=== PATIENT | female | born 1955 | race Caucasian/White ===

== ENCOUNTER 2016-07-18 10:10 | Emergency (ER) | payer OTHER ==
[~2016-07-18] VITALS: Wt 83.0 kg
[~2016-07-18 10:10] MED LIST: ATOR10TA65 PO; BENA20TA48 PO; BENA40TA54 PO; CIPR7.5D4 RIGHT EAR; GLIM4TAB PO; SITA1TAB3 PO
[2016-07-18] MEDS ORDERED: KETOROLAC 30 MG INJ IM STA (11:27)
[2016-07-18] MEDS ORDERED: CYCL-319 PO (12:12)
[2016-07-18] MEDS ORDERED: TRAM50TA2 PO (12:12)
[2016-07-18] MEDS ORDERED: IBUP-1542 PO (12:12)
--- NOTE | 2016-07-18 12:15 | ERD ---
ER Documentation Chief Complaint Date/Time DATE: 07/18/16 TIME: 12:13 Chief Complaint L ARM PAIN X 3 DAYS HPI This 60-year-old female presents with left arm pain for last 3 days. It radiates from her neck. She has some mild pain on her right arm that resolved and now her left arm hurts. The pain started after sleeping. She denies any shortness of breath, fevers, vomiting, bowel or bladder incontinence, weakness. ROS All systems reviewed and are negative except as per history of present illness. Medications Home Meds Active Scripts Cyclobenzaprine Hcl* (Cyclobenzaprine Hcl*) 10 Mg Tablet, 10 MG PO TID, #15 TAB Prov:AMPARO LYNN MD 07/18/16 Tramadol HCl (Tramadol HCl) 50 Mg Tablet, 50 MG PO Q4 Y for PAIN, #15 TAB Prov:AMPARO LYNN MD 07/18/16 Ibuprofen* (Motrin*) 600 Mg Tab, 600 MG PO Q6, #15 TAB Prov:AMPARO LYNN MD 07/18/16 Ciprofloxacin Hcl/Dexameth (Ciprodex Otic Suspension) 7.5 Ml Drops.susp, 4 DROP RIGHT EAR BID for 7 Days, EA Prov:YVES GUADALUPE PA-C 10/11/15 Reported Medications Benazepril Hcl* (Benazepril Hcl*) 20 Mg Tablet, 20 MG PO DAILY for ELEVATED BLOOD PRESSURE, TAB 10/18/13 Glimepiride* (Glimepiride*) 4 Mg Tablet, 4 MG PO BID Y for DECREASED GLUCOSE, # 1 TAB 10/18/13 Glimepiride* (Glimepiride*) 4 Mg Tablet, 4 MG PO BID 06/10/13 Atorvastatin (Atorvastatin) 10 Mg Tablet, 10 MG PO DAILY 06/10/13 Sitagliptin Phos-Metformin Hcl (Janumet) 1 Tab Tablet, 0.5 TAB PO PM 06/10/13 Benazepril Hcl* (Lotensin*) 40 Mg Tablet, 20 MG PO DAILY 06/10/13 Allergies Allergies: Coded Allergies: No Known Allergies (Verified Allergy, Unknown, 04/16/14) PMhx/Soc History of Surgery: No Anesthesia Reaction: No Hx Neurological Disorder: No Hx Respiratory Disorders: No Hx Cardiac Disorders: No Hx Psychiatric Problems: No Hx Miscellaneous Medical Probl: No Hx Alcohol Use: No Hx Substance Use: No Hx Tobacco Use: No Physical Exam Vitals Vital Signs Date Time Temp Pulse Resp B/P Pulse Ox O2 Delivery O2 Flow Rate FiO2 07/18/16 10:13 98.0 83 18 121/72 99 Physical Exam Const: [] Alert, not ill-appearing Head: Atraumatic Eyes: Normal Conjunctiva ENT: Normal External Ears, Nose and Mouth. Neck: Full range of motion..~ No meningismus. Mild tenderness in the bilateral trapezius, left greater than right. Resp: Clear to auscultation bilaterally Cardio: Regular rate and rhythm, no murmurs Abd: Soft, non tender, non distended. Normal bowel sounds Skin: No petechiae or rashes Back: No midline or flank tenderness Ext: No cyanosis, or edema Neur: Awake and alert. Normal gait. No appreciable focal neurologic deficits. Psych: Normal Mood and Affect Results 24 hrs Current Medications Medications (Trade) Dose Ordered Sig/Eileen Route PRN Reason Start Time Stop Time Status Last Admin Dose Admin Ketorolac Tromethamine (Toradol) 30 mg ONCE STAT IM 07/18/16 11:27 07/18/16 11:28 DC 07/18/16 11:58 Procedures/MDM X-ray C spine 3V Interpreted by me: Bones: [No fracture] Joints: No dislocation Foreign body: None. Impression-normal cervical spine x-ray EKG: Rate/Rhythm: [Normal Sinus Rhythm] rate equals 74 QRS, ST, T-waves: [No changes consistent w/ acute ischemia] Impression: [No evidence of ischemia or arrhythmia]. Impression-normal EKG Patient has signs and symptoms of cervical radicular pain. There is no evidence to suggest acute coronary syndrome, PE, meningitis, epidural abscess, neurologic deficit, central vision, additional emergent cause of patient's presenting complaints. Patient will be treated with tramadol, ibuprofen and Flexeril and instructions to follow-up with primary doctor. She should otherwise return to ER for fevers, worsening chest pain, shortness breath, new worsening symptoms as directed after instructions. Departure Diagnosis: Primary Impression: Bilateral arm pain Condition: Stable Patient Instructions: Radiculopathy, Cervical Additional Instructions: Examines normal hoy. Cheque otro vez con andino doctor primario en el proximo brown or regresa para mas o nueva simptomas. AMPARO LYNN MD Jul 18, 2016 12:15
--- NOTE | 2016-07-18 12:21 | RADRPT ---
PROCEDURE: XR cervical spine CLINICAL INDICATION: Neck pain TECHNIQUE: 3 views of the cervical spine obtained COMPARISON: None available FINDINGS: There is preservation of the lordosis of the cervical spine. Alignment appears intact. Vertebral b odies are maintained in height. No fracture is seen. There is disk space narrowing, mild at C4-5, moderate to severe C5-6 and mild at C6-7 with uncovertebral osteophytes seen at these levels. Preve rtebral soft tissues are unremarkable. IMPRESSION: Cervical spondylosis described above. RPTAT: AA .Elias Palacios MD, MD Date Time Electronically viewed and signed by .Elias Palacios MD, on 07/18/2016 12:21 .O/
== END 2016-07-18 12:30 | disposition home or self-care (01) ==
LOC: FTE 10:10
DX: M79.602 Pain in left arm (principal); M79.601 Pain in right arm
CPT/HCPCS: 72040; 93005; 96372; J1885; Z7502